=== PATIENT | female | born 1960 | race Caucasian/White ===

== ENCOUNTER 2018-01-04 00:26 | Day surgery (SDC) | payer OTHER ==
[~2018-01-04] VITALS: Ht 165.1 cm; Wt 55.8 kg
[~2018-01-04 00:26] MED LIST: GLUC100026 PO; LYSI500T34 PO; [UNRECOGNIZED DRUG - CODE] PO
[2018-01-04 05:45] VITALS: BP 129/85
[2018-01-04] MEDS ORDERED: LIDOCAINE/SOD BICARB 8.4% SYR ID ONE (06:30)
[2018-01-04] MEDS ORDERED: NORMOSOL R SOLN(*) 1000 ML BAG 1,000 ML IV PRN (06:30)
[2018-01-04 07:59] VITALS: BP 94/58
--- NOTE | 2018-01-04 08:04 | Short(Outpt) Discharge Summary ---
Discharge Summary Reason for Hosp/Final Diag: (1) Colon cancer screening Status: Chronic Hospital Course & Plan: Colonoscopy with polypectomy x2 completed without problems. Departure Discharge to: Home, Self Care Discharge Instructions Home Meds Reported Medications Glucosamine Sulfate 2KCL (GLUCOSAMINE) 1,000 Mg Tablet, 1000 MG PO QDAY 10/28/17 Ascorbic Acid/Multivit-Min (Emergen-C 1,000 mg Packet) 1,000 Mg Effpowdpkt, 1 PACKET PO QDAY 10/28/17 Lysine (LYSINE) 500 Mg Tablet, 500 MG PO PRN 10/28/17 Diet: Regular Activity: As Tolerated Special Instructions: Your colonoscopy was completed without any problems and your prep was excellent (Good Job!!). I removed 2 small polyps from your colon and they were sent to pathology. Your colonoscopy was otherwise normal. My office will call you in the next 2 weeks and let you know what the polyps are and when your next colonoscopy should be. FLOYD KOENIG MD Jan 04, 2018 08:04
[2018-01-04 08:16] VITALS: BP 98/63
[2018-01-04 08:39] VITALS: BP 111/76
[2018-01-04] MEDS ORDERED: GLYCOPYRROLATE 0.2 MG/ML SDV ONE (08:50)
[2018-01-04] MEDS ORDERED: PROPOFOL EMUL(*) 10MG/ML 20 ML 40 ML ONE (08:50)
[2018-01-04] MEDS ORDERED: LIDOCAINE MPF 1% 5 ML VIAL ONE (08:50)
[2018-01-04 08:59] VITALS: BP 102/74
[2018-01-04 09:01] VITALS: BP 88/69
== END 2018-01-04 09:15 | disposition home or self-care (01) ==
LOC: OR 00:26
PROVIDERS: ATTEND Surgery
DX: Z12.11 Encounter for screening for malignant neoplasm of colon (principal); K63.5 Polyp of colon; Z80.0 Family history of malignant neoplasm of digestive organs
CPT/HCPCS: 00811; 45380; 45385; 88305; J2001; J2704; J3490

== ENCOUNTER → 2019-01-02 | Outpatient (CLI) | payer OTHER ==
--- NOTE | 2019-01-02 09:56 | RADIOLOGY IMAGING REPORT ---
FACILITY: [facility] PATIENT NAME: Reyna Glez : 1960 MR: [id number] V: [id number] EXAM DATE: ORDERING PHYSICIAN: ANDREW MOCK TECHNOLOGIST: Location: [facility] [place] Patient: Reyna Glez : 1960 Visit/Account:[id number] Date of Sevice: 01/02/2019 DEXA Scan Clinical history: Cleaning, postmenopausal. Comparison: None available. LUMBAR SPINE: The bone mineral density (BMD) measured from L1-L4 correlates with a Z-score 0.9 and a T-score of by 0.4 which is Normal as defined by the World Health Organization. The corresponding risk of fracture in the lumbar spine is Not increased compared with a young adult reference population. HIP: Bone mineral density (BMD) measured in the Left total hip region correlates with a Z-score 0.1 and a T-score of -0.9 which is Normal as defined by the World Health Organization. The corresponding risk of fracture in the hip is 1-2 times increased compared with a young adult reference population. T s core left femoral neck -1 Bone mineral density (BMD) measured in the Femoral Neck region measures 0.899 g/cm2. Impression: 1. Lumbar spine: Normal. 2. Left Hip: Normal. 3. Femoral Neck: Bone Mineral Density is 0.899 g/cm2 The next DEXA scan of this patient should include the following sites: L1-L4 and the left hip. FRAX? WHO Fracture Risk Assessment Tool link: <http://www.shef.ac.uk/FRAX/tool.jsp?locationValue=9> PLEASE NOTE: 1) The World Health Organization defines low BMD as follows: T-score Normal > -1 Osteopenia < -1 and > -2.5 Osteoporosis < -2.5 without fractures Established osteoporosis < -2.5 with fractures 2) In general, you may wish to consider: Diagnosis Treatment Follow-up DEXA Normal BMD Prevention 2-3 years Osteopenia Prevention/therapy 1-2 years Osteoporosis Therapy Yearly 3) Fracture risk estimated from the T-score is more accurate for vertebral fractures (often spontane ous) than for hip fractures. Report Dictated By: Lauren Brown MD at 01/02/2019 9:50 AM Report E-Signed By: Lauren Brown MD at 01/02/2019 9:51 AM WSN:[email or web address]
== END ==
LOC: RAD 01:35
PROVIDERS: ATTEND Nurse Practitioner Family
DX: Z13.820 Encounter for screening for osteoporosis (principal); Z78.0 Asymptomatic menopausal state
CPT/HCPCS: 77080